=== PATIENT | female | born 1955 | race Caucasian/White ===

== ENCOUNTER 2021-09-25 12:54 | Outpatient (CLI) | payer MEDICARE ==
[2021-09-25 14:41] LABS: Mean Corpuscular HGB CONC 30.8 g/dL (32.0-36.0); Mean Corpuscular Hemoglobin 29.1 pg (27.0-33.0); Mean Corpuscular Volume 94.6 fl (81.6-98.3); Mean Platelet Volume 11.7 fl (7.4-10.4); Platelet Count 359 10x3/uL (150-450); RBC Distribution Width 13.1 % (11.5-14.5); Red Blood Cell (RBC) Count 4.46 10x6/uL (3.90-5.03); White Blood Cell (WBC) Count 5.9 10x3/uL (3.5-10.5)
[2021-09-25 15:01] LABS: INR-International Normal Ratio 0.9; PTT 24.8 sec (22.0-33.0); Prothrombin Time 10.3 sec (9.5-12.1)
[2021-09-25 15:11] LABS: Anion Gap 14 mmol/L (10-20); BUN (Urea Nitrogen) 20 mg/dL (9.8-20.1); Calc. Creatinine Clearance 0 mL/min (70-130); Calcium 10.1 mg/dL (7.8-10.44); Carbon Dioxide 23 mmol/L (23-31); Chloride 107 mmol/L (98-107); Glucose 87 mg/dL (80-115); Potassium 4.7 mmol/L (3.5-5.1); Sodium 139 mmol/L (136-145)
[2021-09-26 11:59] LABS: SARS-CoV-2 PCR by NAA Not Detected (NotDetected)
== END 2021-09-25 12:55 | disposition home or self-care (01) ==
LOC: CSHLAB 12:54
PROVIDERS: ATTEND Orthopaedic Surgery
DX: Z01.812 Encounter for preprocedural laboratory examination (principal); Z20.822 Contact with and (suspected) exposure to COVID-19; M54.50 Low back pain, unspecified; M54.17 Radiculopathy, lumbosacral region
CPT/HCPCS: 80048; 85027; 85610; 85730; 86850; 86900; 86901; U0003; U0005

== ENCOUNTER 2021-09-25 13:15 | Inpatient (IN) | payer MEDICARE ==
[2021-09-25 14:41] LABS: Mean Corpuscular HGB CONC 30.8 g/dL (32.0-36.0); Mean Corpuscular Hemoglobin 29.1 pg (27.0-33.0); Mean Corpuscular Volume 94.6 fl (81.6-98.3); Mean Platelet Volume 11.7 fl (7.4-10.4); Platelet Count 359 10x3/uL (150-450); RBC Distribution Width 13.1 % (11.5-14.5); Red Blood Cell (RBC) Count 4.46 10x6/uL (3.90-5.03); White Blood Cell (WBC) Count 5.9 10x3/uL (3.5-10.5)
[2021-09-25 15:01] LABS: INR-International Normal Ratio 0.9; PTT 24.8 sec (22.0-33.0); Prothrombin Time 10.3 sec (9.5-12.1)
[2021-09-25 15:11] LABS: Anion Gap 14 mmol/L (10-20); BUN (Urea Nitrogen) 20 mg/dL (9.8-20.1); Calc. Creatinine Clearance 0 mL/min (70-130); Calcium 10.1 mg/dL (7.8-10.44); Carbon Dioxide 23 mmol/L (23-31); Chloride 107 mmol/L (98-107); Glucose 87 mg/dL (80-115); Potassium 4.7 mmol/L (3.5-5.1); Sodium 139 mmol/L (136-145)
[2021-09-26 11:59] LABS: SARS-CoV-2 PCR by NAA Not Detected (NotDetected)
[2021-09-27 09:56] VITALS: BMI 47.7
[2021-09-30] MEDS ORDERED: Midazolam HCl 2 mg/2 ml Vial ONE (06:37)
[2021-09-30] MEDS ORDERED: Lidocaine 1% MPF 2 ML VIAL ONE ×2 (06:38→06:44)
[2021-09-30] MEDS ORDERED: Dexamethasone 20 MG/5 ML VIAL ONE (06:49)
[2021-09-30] MEDS ORDERED: Lidocaine 1% PF 5 ML VIAL ONE (06:49)
[2021-09-30] MEDS ORDERED: Rocuronium Bromide 10 MG/ML (10ML VIAL) ONE (06:49)
[2021-09-30] MEDS ORDERED: Glycopyrrolate 0.2 MG/ML 5 ML SYRINGE ONE (06:49)
[2021-09-30] MEDS ORDERED: Lidocaine 2% PF 5 ML VIAL ONE ×2 (06:50→06:51)
[2021-09-30] MEDS ORDERED: Metoclopramide HCl 10 MG/2 ML VIAL ONE (06:50)
[2021-09-30] MEDS ORDERED: ePHEDrine Sulfate 50 MG/10 ML VIAL ONE ×8 (06:51→13:42)
[2021-09-30] MEDS ORDERED: PROPOFOL 20 ML ONE (06:51)
[2021-09-30] MEDS ORDERED: Fentanyl 100 MCG/2 ML VIAL ONE ×2 (06:52→15:38)
[2021-09-30] MEDS ORDERED: Sodium Chloride 0.9% 10 ML ONE (06:57)
[2021-09-30] MEDS ORDERED: Famotidine/PF 20 mg/2ml Vial ONE (07:11)
[2021-09-30] MEDS ORDERED: Bupivacaine 0.25% HCL 30 ML VIAL ONE (10:44)
[2021-09-30] MEDS ORDERED: CEFAZOLIN 1 GM VIAL ONE ×2 (13:33)
[2021-09-30] MEDS ORDERED: Morphine 4 MG/ML VIAL SLOW IVP PRN (14:51)
[2021-09-30] MEDS ORDERED: Acetaminophen 325 MG TAB PO PRN (14:51)
[2021-09-30] MEDS ORDERED: Promethazine 25 MG TAB PO PRN (14:53)
[2021-09-30] MEDS ORDERED: TETANUS AND DIPHTHERIA TOX/PF 0.5 ML DISP.SYRIN IM SCH (15:00)
[2021-09-30] MEDS: Aspirin 81 mg Enteric Coated Tablet PO SCH (20:23)
[2021-09-30] MEDS ORDERED: Acetaminophen/Codeine 30-300mg Tablet PO SCH (21:00)
[2021-09-30] MEDS ORDERED: Lisinopril 20 MG TAB PO SCH (21:00)
[2021-09-30] MEDS ORDERED: Cyclobenzaprine 10 MG TAB PO SCH (21:00)
[2021-09-30] MEDS: HYDROcodone/Acetaminophen 10/325 mg Tablet PO PRN (21:27)
[2021-09-30] MEDS ORDERED: Cyclobenzaprine 10 MG TAB PO PRN (23:41)
[2021-09-30] MEDS ORDERED: Bisacodyl 5 MG TAB PO PRN (23:42)
[2021-09-30] MEDS ORDERED: Metoprolol Tartrate 25 MG TAB PO SCH (23:45)
[2021-09-30] MEDS ORDERED: Lactated Ringer's 500 ML IV SCH ×2 (23:45→23:59)
[2021-09-30] MEDS: CEFAZOLIN 2 GM in Premix Bag 1 BAG IVPB SCH (23:59)
[2021-10-01] MEDS: CEFAZOLIN 2 GM in Premix Bag 1 BAG IVPB SCH ×2 (05:08→14:57)
[2021-10-01 05:40] LABS: Anion Gap 11 mmol/L (10-20); BUN (Urea Nitrogen) 16 mg/dL (9.8-20.1); Calc. Creatinine Clearance 123 mL/min (70-130); Calcium 9.1 mg/dL (7.8-10.44); Carbon Dioxide 25 mmol/L (23-31); Chloride 110 mmol/L (98-107); Glucose 134 mg/dL (80-115); Potassium 5.2 mmol/L (3.5-5.1); Sodium 141 mmol/L (136-145)
[2021-10-01 07:34] LABS: #Monocytes 1.2 10x3/uL (0.0-1.1); #Neutrophils 12.6 10x3/uL (1.5-8.4); %Basophils 0.1 % (0.0-2.0); %Lymphocytes 7.1 % (18.0-47.0); %Monocytes 7.8 % (0.0-10.0); %Neutrophils 84.7 % (40.0-75.0); Hemoglobin 10.5 g/dL (12.0-15.5); Mean Corpuscular HGB CONC 31.4 g/dL (32.0-36.0); Mean Corpuscular Hemoglobin 29.5 pg (27.0-33.0); Mean Corpuscular Volume 93.8 fl (81.6-98.3); Platelet Count 248 10x3/uL (150-450); RBC Distribution Width 13.3 % (11.5-14.5); Red Blood Cell (RBC) Count 3.56 10x6/uL (3.90-5.03); White Blood Cell (WBC) Count 14.9 10x3/uL (3.5-10.5)
[2021-10-01] MEDS ORDERED: Aspirin 81 mg Enteric Coated Tablet PO SCH (09:00)
[2021-10-01] MEDS ORDERED: Lisinopril 5 MG TAB PO SCH (09:00)
[2021-10-01] MEDS ORDERED: Polyethylene Glycol 3350 17 GM Packet PO SCH (09:00)
[2021-10-01] MEDS: Aspirin 81 mg Enteric Coated Tablet PO SCH (09:24)
[2021-10-01 12:13] LABS: Anion Gap 10 mmol/L (10-20); BUN (Urea Nitrogen) 16 mg/dL (9.8-20.1); Calc. Creatinine Clearance 115 mL/min (70-130); Carbon Dioxide 28 mmol/L (23-31); Chloride 106 mmol/L (98-107); Glucose 106 mg/dL (80-115); Potassium 4.7 mmol/L (3.5-5.1); Sodium 139 mmol/L (136-145)
[2021-10-01] MEDS: HYDROcodone/Acetaminophen 10/325 mg Tablet PO PRN (14:56)
[2021-10-01 16:06] VITALS: BP 111/53; TEMP 98.4
== END 2021-10-01 16:45 | disposition home or self-care (01) | DRG 454 ==
LOC: EDSTATUS 13:15 → UNDOADMIN 09-30 05:28 → CSHERHOLD 09-30 05:28 → UNDOADMIN 09-30 06:20 → CSHPP 09-30 06:20 → CSHTELE 09-30 19:20 → CSHPP 09-30 19:20
PROVIDERS: ADMIT Orthopaedic Surgery; ATTEND Orthopaedic Surgery
PROC: 0SG10AJ Fusion of 2 or more Lumbar Vertebral Joints with Interbody Fusion Device, Posterior Approach, Anterior Column, Open Approach (ICD-10-PCS; principal; 2021-09-30)
PROC: 0SG30AJ Fusion of Lumbosacral Joint with Interbody Fusion Device, Posterior Approach, Anterior Column, Open Approach (ICD-10-PCS; 2021-09-30)
PROC: 0SG1071 Fusion of 2 or more Lumbar Vertebral Joints with Autologous Tissue Substitute, Posterior Approach, Posterior Column, Open Approach (ICD-10-PCS; 2021-09-30)
PROC: 0SG3071 Fusion of Lumbosacral Joint with Autologous Tissue Substitute, Posterior Approach, Posterior Column, Open Approach (ICD-10-PCS; 2021-09-30)
PROC: 4A11X4G Monitoring of Peripheral Nervous Electrical Activity, Intraoperative, External Approach (ICD-10-PCS; 2021-09-30)
DX: M48.061 Spinal stenosis, lumbar region without neurogenic claudication (principal); Z68.42 Body mass index [BMI] 45.0-49.9, adult; M54.16 Radiculopathy, lumbar region; M54.17 Radiculopathy, lumbosacral region; E87.5 Hyperkalemia; E66.01 Morbid (severe) obesity due to excess calories; Z20.822 Contact with and (suspected) exposure to COVID-19; G89.29 Other chronic pain; I12.9 Hypertensive chronic kidney disease with stage 1 through stage 4 chronic kidney disease, or unspecified chronic kidney disease; N18.2 Chronic kidney disease, stage 2 (mild); I48.0 Paroxysmal atrial fibrillation; I25.10 Atherosclerotic heart disease of native coronary artery without angina pectoris; M48.07 Spinal stenosis, lumbosacral region; M43.16 Spondylolisthesis, lumbar region; M43.17 Spondylolisthesis, lumbosacral region; M41.86 Other forms of scoliosis, lumbar region; M41.87 Other forms of scoliosis, lumbosacral region; Z88.5 Allergy status to narcotic agent; Z90.710 Acquired absence of both cervix and uterus; Z90.81 Acquired absence of spleen; Z86.73 Personal history of transient ischemic attack (TIA), and cerebral infarction without residual deficits; Z79.899 Other long term (current) drug therapy; Z79.891 Long term (current) use of opiate analgesic
CPT/HCPCS: 72110; 76000; 80048; 83735; 85025; 85027; 85610; 85730; 86850; 86900; 86901; 94760; C1713; C1762; C1763; J0690; J1100; J2001; J2250; J2270; J2704; J2765; J3010; J7120; S0020; S0028; U0003; U0005

== ENCOUNTER 2022-05-09 10:51 | Emergency (ER) | payer MEDICARE ==
[2022-05-09 11:51] LABS: #Basophils 0.1 10x3/uL (0.0-0.2); #Eosinphils 0.2 10x3/uL (0.0-0.5); #Monocytes 0.7 10x3/uL (0.0-1.1); #Neutrophils 4.7 10x3/uL (1.5-8.4); %Basophils 0.7 % (0.0-2.0); %Lymphocytes 25.9 % (18.0-47.0); %Monocytes 8.7 % (0.0-10.0); %Neutrophils 61.4 % (40.0-75.0); Hemoglobin 10.6 g/dL (12.0-15.5); Mean Corpuscular HGB CONC 29.9 g/dL (32.0-36.0); Mean Corpuscular Hemoglobin 25.6 pg (27.0-33.0); Mean Corpuscular Volume 85.5 fl (81.6-98.3); Mean Platelet Volume 11.5 fl (7.4-10.4); Platelet Count 278 10x3/uL (150-450); RBC Distribution Width 17.1 % (11.5-14.5); Red Blood Cell (RBC) Count 4.14 10x6/uL (3.90-5.03); White Blood Cell (WBC) Count 7.6 10x3/uL (3.5-10.5)
[2022-05-09 12:06] LABS: ALT (SGPT) 34 U/L (8-55); AST (SGOT) 24 U/L (5-34); Albumin 3.7 g/dL (3.4-4.8); Alkaline Phosphatase 150 U/L (40-110); Anion Gap 15 mmol/L (10-20); BUN (Urea Nitrogen) 17 mg/dL (9.8-20.1); Bilirubin, Total 0.3 mg/dL (0.2-1.2); Calc. Creatinine Clearance 0 mL/min (70-130); Calcium 10.1 mg/dL (7.8-10.44); Carbon Dioxide 24 mmol/L (23-31); Chloride 107 mmol/L (98-107); Estimated GFR 77; Globulin 3.5 g/dL (2.4-3.5); Glucose 86 mg/dL (80-115); Potassium 4.8 mmol/L (3.5-5.1); Protein, Total 7.2 g/dL (5.8-8.1); Sodium 141 mmol/L (136-145)
[2022-05-09 12:34] LABS: Anisocytosis SLIGHT = 6-15 cells (100X) (0-5/hpf); Macrocytosis SLIGHT = 6-15 cells (100X) (0-5/hpf)
[2022-05-09 12:35] LABS: Hypochromia SLIGHT = 6-15 cells (100X) (0-5/hpf); Ovalocytes SLIGHT = 2-5 cells (100X) (0-1/hpf); Platelet Morphology Comment Appears Adequate
== END 2022-05-09 12:41 | disposition home or self-care (01) ==
LOC: CSHERS 10:51
DX: I10 Essential (primary) hypertension (principal); M54.2 Cervicalgia
CPT/HCPCS: 71045; 80053; 83880; 84484; 85025; 93005

== ENCOUNTER 2023-06-03 16:08 | Emergency (ER) | payer MEDICARE | END 2023-06-03 18:05 | disposition home or self-care (01) | LOC: CSHERS 16:08 | DX: M25.562 Pain in left knee (principal); I10 Essential (primary) hypertension ==

== ENCOUNTER 2023-06-30 12:35 | Outpatient (CLI) | payer MEDICARE | END 2023-06-30 12:36 | disposition home or self-care (01) | LOC: CSHMRI 12:35 | PROVIDERS: ATTEND Nurse Practitioner Family | DX: S89.91XD Unspecified injury of right lower leg, subsequent encounter (principal); S89.92XD Unspecified injury of left lower leg, subsequent encounter; S83.282A Other tear of lateral meniscus, current injury, left knee, initial encounter; S83.242A Other tear of medial meniscus, current injury, left knee, initial encounter; M23.92 Unspecified internal derangement of left knee; M25.462 Effusion, left knee; M71.22 Synovial cyst of popliteal space [Baker], left knee; M23.91 Unspecified internal derangement of right knee ==

== ENCOUNTER 2023-07-13 12:44 | Emergency (ER) | payer MEDICARE ==
[2023-07-13 14:05] LABS: Bilirubin Neg (Negative); Blood, Urine 10 (Negative); Clarity Slightly Cloudy (Clear); Glucose, Urine (Dipstick) Normal (Negative); Ketone, Urine Negative (Negative); Leukocyte 500 (Negative); Nitrite Positive (Negative); Protein, Urine (Dipstick) 30 mg/dl (Neg-Trace); Urobilinogen Normal mg/dL (Less than 2)
[2023-07-13 14:33] LABS: Bacteria/HPF 4+ HPF (None Seen); CAUTI Indications for Culture Fever or rigors; Mucous/LPF 2+ LPF (<2+); RBC/HPF 0-3 HPF (0-3); Squamous Epithelial 0-3 HPF (0-3); WBC/HPF 21-50 HPF (0-3)
[2023-07-13 14:34] LABS: Urine Culture Reflex Yes Yes
[2023-07-13] MEDS ORDERED: Iopamidol 300 61% 100 ML VIAL FS ONE (14:34)
[2023-07-13] MEDS ORDERED: Morphine 4 MG/ML VIAL ONE (14:58)
[2023-07-13] MEDS ORDERED: Ondansetron PF 4 MG/2 ML Vial ONE (14:59)
[2023-07-13 15:33] LABS: #Basophils 0.1 10x3/uL (0.0-0.2); #Eosinphils 0.1 10x3/uL (0.0-0.5); #Monocytes 0.6 10x3/uL (0.0-1.1); #Neutrophils 3.9 10x3/uL (1.5-8.4); %Eosinophils 1.9 % (0.0-6.0); %Lymphocytes 31.3 % (18.0-47.0); %Monocytes 9.2 % (0.0-10.0); %Neutrophils 56.5 % (40.0-75.0); Hematocrit 34.7 % (34.9-44.5); Mean Corpuscular HGB CONC 28.8 g/dL (32.0-36.0); Mean Corpuscular Hemoglobin 21.5 pg (27.0-33.0); Mean Corpuscular Volume 74.6 fl (81.6-98.3); Mean Platelet Volume 10.9 fl (7.4-10.4); Platelet Count 529 10x3/uL (150-450); RBC Distribution Width 19.7 % (11.5-14.5); Red Blood Cell (RBC) Count 4.65 10x6/uL (3.90-5.03); White Blood Cell (WBC) Count 6.9 10x3/uL (3.5-10.5)
[2023-07-13 15:41] LABS: ALT (SGPT) 20 U/L (8-55); AST (SGOT) 20 U/L (5-34); Albumin 4.1 g/dL (3.4-4.8); Alkaline Phosphatase 70 U/L (40-110); Anion Gap 14 mmol/L (10-20); BUN (Urea Nitrogen) 10 mg/dL (9.8-20.1); Bilirubin, Total 0.4 mg/dL (0.2-1.2); Calc. Creatinine Clearance 0 mL/min (70-130); Calcium 10.2 mg/dL (7.8-10.44); Carbon Dioxide 23 mmol/L (23-31); Chloride 106 mmol/L (98-107); Estimated GFR 61; Globulin 3.6 g/dL (2.4-3.5); Glucose 94 mg/dL (80-115); Lipase 6 U/L (8-78); Magnesium 2.1 mg/dL (1.6-2.6); Potassium 4.2 mmol/L (3.5-5.1); Protein, Total 7.7 g/dL (5.8-8.1); Sodium 139 mmol/L (136-145)
[2023-07-13 15:52] LABS: Troponin I Less than 0.010 ng/mL (< 0.028)
[2023-07-13] MEDS ORDERED: cefTRIAXone (ROCEPHIN) 1 GM VIAL ONE (17:17)
[2023-07-13 19:48] LABS: Anisocytosis SLIGHT = 6-15 cells (100X) (0-5/hpf); Hypochromia SLIGHT = 6-15 cells (100X) (0-5/hpf); Microcytosis SLIGHT = 6-15 cells (100X) (0-5/hpf)
[2023-07-13 19:49] LABS: Large Platelets SLIGHT (None Seen); Platelet Adequacy Comment Appears Increased
== END 2023-07-13 18:03 | disposition home or self-care (01) ==
LOC: CSHERS 12:44
DX: K44.9 Diaphragmatic hernia without obstruction or gangrene (principal); N39.0 Urinary tract infection, site not specified; I10 Essential (primary) hypertension; I48.91 Unspecified atrial fibrillation
CPT/HCPCS: 36415; 71045; 74177; 80053; 81001; 83605; 83690; 83735; 84484; 85025; 87040; 87077; 87086; 87186; 93005; 96361; 96374; 96375; J0696; J2270; J2405; Q9967

== ENCOUNTER 2023-09-21 08:30 | Outpatient (CLI) | payer MEDICARE | END 2023-09-21 08:31 | disposition home or self-care (01) | LOC: CSHRAD 08:30 | PROVIDERS: ATTEND Surgery | DX: R13.10 Dysphagia, unspecified (principal); K44.9 Diaphragmatic hernia without obstruction or gangrene | CPT/HCPCS: 74246 ==

== ENCOUNTER 2023-10-16 06:00 | Day surgery (SDC) | payer MEDICARE ==
[2023-10-15 09:22] VITALS: BMI 48.2
[2023-10-16] MEDS ORDERED: PROPOFOL 20 ML ONE ×3 (09:05→09:44)
== END 2023-10-16 10:30 | disposition home or self-care (01) ==
LOC: CSHSDC 06:00
PROVIDERS: ATTEND Surgery
PROC: 0DJD8ZZ Inspection of Lower Intestinal Tract, Via Natural or Artificial Opening Endoscopic (ICD-10-PCS; principal; 2023-10-16)
DX: Z12.11 Encounter for screening for malignant neoplasm of colon (principal); K57.30 Diverticulosis of large intestine without perforation or abscess without bleeding; I10 Essential (primary) hypertension; E66.01 Morbid (severe) obesity due to excess calories; Z68.42 Body mass index [BMI] 45.0-49.9, adult; Z79.899 Other long term (current) drug therapy; Z88.5 Allergy status to narcotic agent
CPT/HCPCS: J2704

== ENCOUNTER 2024-07-08 15:19 | Emergency (ER) | payer MEDICARE | END 2024-07-08 16:23 | disposition home or self-care (01) | LOC: CSHERS 15:19 | DX: T78.40XA Allergy, unspecified, initial encounter (principal); T43.225A Adverse effect of selective serotonin reuptake inhibitors, initial encounter; I10 Essential (primary) hypertension | CPT/HCPCS: 99283 ==

== ENCOUNTER 2024-12-19 07:48 | Outpatient (CLI) | payer MEDICARE ==
[2024-12-19] MEDS ORDERED: Iopamidol 300 61% 100 ML VIAL FS ONE (09:55)
== END 2024-12-19 07:49 | disposition home or self-care (01) ==
LOC: CSHCT 07:48
PROVIDERS: ATTEND Physician Assistant Medical
DX: R68.81 Early satiety (principal); R11.0 Nausea; K21.9 Gastro-esophageal reflux disease without esophagitis; K43.9 Ventral hernia without obstruction or gangrene; E66.01 Morbid (severe) obesity due to excess calories; Z98.84 Bariatric surgery status; K59.09 Other constipation; K42.9 Umbilical hernia without obstruction or gangrene; N32.9 Bladder disorder, unspecified
CPT/HCPCS: 74177; 82565